=== PATIENT | female | born 2000 | race Native Hawaiian/Other Pacific Islander ===

== ENCOUNTER 2019-11-08 13:24 | Outpatient (CLI) | payer OTHER | END 2019-11-08 19:29 | disposition home or self-care (01) | LOC: MRI 13:24 | DX: R40.4 Transient alteration of awareness (principal); R56.9 Unspecified convulsions ==

== ENCOUNTER 2020-02-13 06:50 | Outpatient (CLI) | payer OTHER | END 2020-02-13 21:34 | disposition home or self-care (01) | LOC: RESP 06:50 | DX: R40.4 Transient alteration of awareness (principal) ==

== ENCOUNTER 2020-03-10 13:28 | Emergency (ER) | payer OTHER ==
[~2020-03-10] VITALS: Ht 154.9 cm; Wt 45.4 kg
[2020-03-10 14:30] VITALS: TEMP 97.9
[2020-03-10 14:58] LABS: PLATELET COUNT 227 K/uL (152-353)
[2020-03-10 15:04] LABS: POTASSIUM 3.8 mmol/L (3.6-5.2)
[2020-03-10 16:15] VITALS: BP 112/70
== END 2020-03-10 16:15 | disposition home or self-care (01) ==
LOC: ED 13:28
PROVIDERS: Family Medicine
DX: J06.9 Acute upper respiratory infection, unspecified (principal); K52.89 Other specified noninfective gastroenteritis and colitis; Z20.828 Contact with and (suspected) exposure to other viral communicable diseases; F17.290 Nicotine dependence, other tobacco product, uncomplicated
CPT/HCPCS: 36415; 80053; 81000; 81025; 82728; 83605; 85027; 85379; 87040; 87502; 87635; 87651; 96374; 99284; J2405; U0003